=== PATIENT | female | born 1950 | race African-American/Black ===

== ENCOUNTER → 2016-12-04 | Outpatient (CLI) | payer MEDICARE ==
[~2016-12-04] MED LIST: BENAZEPRIL-HCTZ1 T16 PO; IBUPROFEN800 MG PO; KEFLEX500 MG PO; METOPROLOL SUCC50 MG; OXYCONTIN30 MG PO; PERCOCET; PREVACID PO
--- NOTE | ~2016-12-04 | MY11 ---
[facility] A Service [facility] RADIOLOGY TEXT RESULTS PATIENT: QUIANA LOZA LOCATION: [facility] : 50 UNIT #: [id number] AGE: [address]: Lilliam Swanson MD SEX: F ORDER DR: [id number] [place] [id number] O MR#: [id number] Acc #: [id number] NAME: QUIANA LOZA : 1950 SEX: F STUDY DATE/TIME: 12/04/2016 15:02 UNIT: [facility] ROOM: STUDY DESCRIPTION: MY Mammogram Screening Dig Bony Attending Physician: Lilliam Swanson M.D. Referring Physician: Lilliam Swanson M.D. Ordering Physician: Lilliam Swanson M.D. Primary Care Physician: Lilliam Swanson M.D. MEDICAL IMAGING REPORT This report is preliminary unless electronic signature is present. EXAM Bilateral Digital Screening Mammogram with CAD INDICATION Breast cancer screening. 66-year-old asymptomatic female. No personal or family history of breast cancer. COMPARISON 11/26/2015, 11/13/2014, 10/17/2013, 10/15/2012, 08/29/2011. FINDINGS There are scattered fibroglandular tissues. No suspicious findings are present. IMPRESSION No mammographic evidence of malignancy. Annual screening mammography and clinical breast exam are recommended. A result letter will be sent to the patient. Patients over the age of 40 are entered into a reminder system with target due date for the next mammogram. BIRADS: 1 Negative Dictated by... Evan Farah M.D. THIS IS AN ELECTRONICALLY VERIFIED REPORT Evan Farah M.D. at 12/06/2016 10:39 AM [facility] A Service [facility] RADIOLOGY TEXT RESULTS PATIENT: QUIANA LOZA LOCATION: [facility] : 50 UNIT #: [id number] AGE: [address]: Lilliam Swanson MD SEX: F ORDER DR: DAMARIS/geena TD: 12/04/2016 18:54 JOB #: [id number] MEDICAL IMAGING REPORT Page 1 of 1
== END | disposition home or self-care (01) ==
LOC: SMAM 14:13
DX: Z12.31 Encounter for screening mammogram for malignant neoplasm of breast (principal)
CPT/HCPCS: G0202